=== PATIENT | female | born 1950 ===

== ENCOUNTER → 2019-01-30 | Outpatient (CLI) | payer MEDICARE ==
[~2019-01-30] VITALS: Ht 165.1 cm; Wt 91.2 kg
== END | disposition home or self-care (01) ==
LOC: ECT 08:10
DX: F25.1 Schizoaffective disorder, depressive type (principal); E03.9 Hypothyroidism, unspecified; M19.90 Unspecified osteoarthritis, unspecified site; I10 Essential (primary) hypertension; Z79.899 Other long term (current) drug therapy; F32.9 Major depressive disorder, single episode, unspecified

== ENCOUNTER 2019-02-01 05:23 | Outpatient (RCR) | payer MEDICARE ==
[~2019-02-01] VITALS: Ht 165.1 cm; Wt 88.5 kg
[2019-02-01] MEDS ORDERED: Succinylcholine 20mg/ml 10ml vial ONE ×5 (05:24)
[2019-02-01] MEDS ORDERED: NS 500ML ONE ×3 (05:24)
[2019-02-01] MEDS ORDERED: Methohexital Sodium Syr 100mg/10ml IVP ONE ×3 (05:24)
[2019-02-01 09:42] VITALS: BP 136/82
[2019-02-01 09:53] VITALS: BP 138/75
[2019-02-01 09:58] VITALS: BP 127/59
[2019-02-01 10:03] VITALS: BP 146/79
[2019-02-01 10:08] VITALS: BP 133/55
[2019-02-01 11:04] VITALS: BP 136/82
[2019-02-03] MEDS ORDERED: Methohexital Sodium Syr 100mg/10ml IVP ONE (06:00)
[2019-02-03] MEDS ORDERED: Succinylcholine 20mg/ml 10ml vial ONE (06:00)
[2019-02-03] MEDS ORDERED: NS 500ML ONE (06:00)
[2019-02-03 08:59] VITALS: BP 132/73
[2019-02-03 09:15] VITALS: BP 165/89
[2019-02-03 09:20] VITALS: BP 132/60
[2019-02-03 09:25] VITALS: BP 124/59
[2019-02-03 09:30] VITALS: BP 115/60
[2019-02-06 09:28] VITALS: BP 120/76
[2019-02-06 09:40] VITALS: BP 155/60
[2019-02-06 09:45] VITALS: BP 139/64
[2019-02-06 09:50] VITALS: BP 133/54
[2019-02-06 09:55] VITALS: BP 140/65
[2019-02-10 08:55] VITALS: BP 110/76
[2019-02-10 09:08] VITALS: BP 154/67
[2019-02-10 09:13] VITALS: BP 154/71
[2019-02-10 09:18] VITALS: BP 156/63
[2019-02-10 09:23] VITALS: BP 151/62
[2019-02-13] MEDS ORDERED: Methohexital Sodium Syr 100mg/10ml IVP ONE (09:00)
[2019-02-13] MEDS ORDERED: Succinylcholine 20mg/ml 10ml vial ONE (09:00)
[2019-02-13] MEDS ORDERED: NS 500ML ONE (09:00)
[2019-02-13 09:01] VITALS: BP 105/70
[2019-02-13 09:12] VITALS: BP 165/85
[2019-02-13 09:17] VITALS: BP 160/69
[2019-02-13 09:22] VITALS: BP 136/69
[2019-02-13 09:27] VITALS: BP 132/70
== END 2019-02-14 | disposition home or self-care (01) ==
LOC: ECT 05:23
DX: F25.1 Schizoaffective disorder, depressive type (principal); E03.9 Hypothyroidism, unspecified; M19.90 Unspecified osteoarthritis, unspecified site; E55.9 Vitamin D deficiency, unspecified; E78.5 Hyperlipidemia, unspecified; I10 Essential (primary) hypertension
CPT/HCPCS: 90870